=== PATIENT | female | born 1985 | race Caucasian/White ===

== ENCOUNTER → 2020-04-28 17:36 | Outpatient (CLI) | payer BC, SELFPAY ==
[2020-04-30 17:25] LABS: Covid-19 Nasal PCR Sendout UK Not Detected
== END ==
PROVIDERS: Visit Provider Nurse Practitioner Family
DX: Z03.818 Encounter for observation for suspected exposure to other biological agents ruled out (principal)
CPT/HCPCS: U0003; U0004